=== PATIENT | male | born 1940 | race Caucasian/White ===

== ENCOUNTER 2019-03-17 09:44 | Outpatient (RCR) | payer MEDICARE, OTHER, SELFPAY ==
[2019-01-15 10:18] LABS: INR 2.6; Prothrombin Time 27.2 Seconds (11.1-14.7)
[2019-01-15 10:32] LABS: Alanine Aminotransferase 27 U/L (4-50); Albumin Level 3.9 g/dL (3.5-5.1); Alkaline Phosphatase 65 U/L (38-126); Aspartate Amino Transferase 30 U/L (17-59); Bilirubin,Total 0.6 mg/dL (0.2-1.3); Blood Urea Nitrogen 24 mg/dL (9-20); Calcium 8.6 mg/dL (8.4-10.2); Carbon Dioxide 32 mmol/L (22-30); Chloride 105 mmol/L (98-107); Cholesterol 146 mg/dL (0-200); Estimated Glomerular Filt Rate > 60; Glucose 92 mg/dL (75-110); HDL Direct 36 mg/dL; Potassium 3.9 mmol/L (3.4-5.0); Sodium 141 mmol/L (137-145); Triglycerides 242 mg/dL (<150)
[2019-01-15 10:43] LABS: LDL Cholesterol Direct 80 mg/dL
[2019-01-15 11:10] LABS: Hemoglobin A1C 5.6 % (<5.7)
[2019-03-17 10:44] LABS: Alanine Aminotransferase 27 U/L (4-50); Alkaline Phosphatase 76 U/L (38-126); Aspartate Amino Transferase 29 U/L (17-59); Bilirubin,Total 0.8 mg/dL (0.2-1.3); Blood Urea Nitrogen 23 mg/dL (9-20); Calcium 8.8 mg/dL (8.4-10.2); Carbon Dioxide 31 mmol/L (22-30); Chloride 100 mmol/L (98-107); Cholesterol 136 mg/dL (0-200); Estimated Glomerular Filt Rate > 60; Glucose 85 mg/dL (75-110); HDL Direct 34 mg/dL; Potassium 3.4 mmol/L (3.4-5.0); Sodium 138 mmol/L (137-145); Triglycerides 156 mg/dL (<150)
[2019-03-17 10:45] LABS: Prothrombin Time 30.5 Seconds (11.1-14.7)
[2019-03-17 10:55] LABS: Hemoglobin A1C 5.9 % (<5.7); LDL Cholesterol Direct 79 mg/dL
== END 2019-04-15 23:59 | disposition home or self-care (01) ==
LOC: ANHLAB 09:44
PROVIDERS: PCP Emergency Medicine; Visit Provider Nurse Practitioner
DX: E78.5 Hyperlipidemia, unspecified (principal); E55.9 Vitamin D deficiency, unspecified; R73.9 Hyperglycemia, unspecified; Z92.29 Personal history of other drug therapy
CPT/HCPCS: 36415; 80053; 80061; 82306; 83036; 85610

== ENCOUNTER 2019-04-14 13:37 | Outpatient (CLI) | payer MEDICARE, OTHER, SELFPAY ==
--- NOTE | ~2019-04-14 | CT_ITS ---
EXAMINATION: CT abdomen pelvis w con EXAM DATE: 04/14/2019 14:14 INDICATION: Abdominal pain. TECHNIQUE: Spiral CT of the abdomen and pelvis was performed following intravenous injection of 100 m L Omnipaque 350. Axial, coronal and sagittal images were reviewed. The dose-length product (DLP) fo r this examination was 1160.17 mGy-cm. The exposure was tailored according to patient size (auto mA exposure control), and iterative reconstruction (ASIR) was used as additional dose reduction techniqu e. Comparison is made to prior examination from 07/22/2018. FINDINGS: Chronic left liver lobe atrophy unchanged. The liver, spleen, adrenal glands and pancreas are otherwise unremarkable. Gallbladder is unremarkable. No biliary obstruction. Portal and spleni c veins are patent. Kidneys enhance symmetrically. There is no hydronephrosis. The prostate is un remarkable. The bladder is unremarkable. There is no retroperitoneal or pelvic lymphadenopathy. T here is an IVC filter. The appendix is unremarkable, has decreased in caliber compared to previous exam. The stomach and sm all bowel are unremarkable. There is expected amount of colonic stool. No free intraperitoneal gas . The heart is normal in size. There are no pericardial or pleural effusions. Pleural-based 5 mm left lower lobe nodule was present in 2013, consistent with granuloma. Dependent subsegmental atelect asis. There are no osteoblastic or osteolytic lesions identified. 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 IMPRESSION: 1. No acute intra-abdominal findings. 2. Chronic findings. Reviewed, dictated and finalized at location A. [employer]
== END 2019-04-14 13:38 | disposition home or self-care (01) ==
PROVIDERS: PCP Emergency Medicine; Visit Provider Emergency Medicine
DX: R10.9 Unspecified abdominal pain (principal)
CPT/HCPCS: 74177; Q9967

== ENCOUNTER 2019-06-30 20:41 | Emergency (ER) | payer MEDICARE, OTHER, SELFPAY ==
--- NOTE | ~2019-06-30 | XR_ITS ---
EXAMINATION: XR hip RT 2V w AP pelvis INDICATION: Pain after fall TECHNIQUE: AP view the pelvis and two views of the right hip are obtained. COMPARISON: None available FINDINGS: Bone alignment is normal. 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 No frac ture is identified. Phleboliths are noted in the pelvis. IMPRESSION: 1. No acute osseous abnormality. Reviewed, dictated and finalized at location A.
--- NOTE | ~2019-06-30 | XR_ITS ---
EXAMINATION: XR femur RT min 2V INDICATION: Right femur pain TECHNIQUE: Two views of the right femur are obtained on four radiographs. COMPARISON: None available FINDINGS: There is no fracture. Mild hip osteoarthritis is noted. There are changes of total knee art hroplasty. A small knee joint effusion is present. Bone alignment is normal. IMPRESSION: 1. No acute osseous abnormality. Reviewed, dictated and finalized at location A.
--- NOTE | ~2019-06-30 | XR_ITS ---
EXAMINATION: XR knee RT min 4V DATE: 06/30/2019 21:34 INDICATION: Right knee pain TECHNIQUE: Four views of the right knee were obtained. COMPARISON: None. FINDINGS: Alignment is normal. There are changes of total knee arthroplasty. No fracture is identifie d. There is a small knee joint effusion. There is mild prepatellar soft tissue swelling. Calcified at herosclerosis is noted. IMPRESSION: 1. Small knee joint effusion without acute osseous findings. Reviewed, dictated and finalized at location A.
[2019-06-30 20:42] VITALS: BP 129/94; PULSE 102; RESP 18; TEMP 36.9; O2SAT 98
[2019-06-30 21:12] LABS: Basophils Absolute Auto 0.1 K/mm3 (0.0-0.1); Basophils Percent Auto 0.6 % (0.2-1.2); Eosinophils Absolute Auto 0.2 K/mm3 (0-0.3); Eosinophils Percent Auto 2.2 % (0-4.4); Hematocrit 35.2 % (42.0-52.0); Hemoglobin 11.2 g/dL (14.0-18.0); Immature Granulocyte Absolute 0.07 K/mm3 (0.00-0.031); Immature Granulocyte Percent A 0.8 % (0-0.5); Lymphocytes Absolute Auto 1.19 K/mm3 (0.9-3.2); Lymphocytes Percent Auto 13.8 % (18.3-44.2); Mean Corpuscular HGB Conc 31.8 g/dl (32-36); Mean Corpuscular Hemoglobin 28.6 pg (26-34); Mean Platelet Volume 8.8 fl (7.4-10.4); Monocytes Absolute Auto 0.9 K/mm3 (0.1-0.6); Monocytes Percent Auto 10.2 % (2.6-8.5); Neutrophils Absolute Auto 6.2 K/mm3 (1.3-6.7); Neutrophils Percent Auto 72.4 % (45.5-73.1); Platelet Count Result 280 k/mm3 (150-375); Red Blood Count 3.91 M/mm3 (4.6-6.20); Red Cell Distribution Width 14.3 % (11.5-14.5); White Blood Count 8.6 K/mm3 (4.5-10.0)
[2019-06-30 21:23] LABS: Prothrombin Time 45.9 Seconds (11.1-14.7)
[2019-06-30 21:24] LABS: Blood Urea Nitrogen 24 mg/dL (9-20); Calcium 8.3 mg/dL (8.4-10.2); Carbon Dioxide 32 mmol/L (22-30); Chloride 106 mmol/L (98-107); Estimated CRCL calculation 73 ml/min; Estimated Glomerular Filt Rate > 60; Glucose 124 mg/dL (75-110); Potassium 3.8 mmol/L (3.4-5.0); Sodium 140 mmol/L (137-145)
[2019-06-30 22:27] VITALS: BP 126/84; PULSE 98; RESP 16; O2SAT 100
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
== END 2019-06-30 23:07 | disposition home or self-care (01) ==
PROVIDERS: Emergency Provider Emergency Medicine; PCP Emergency Medicine
DX: S70.11XA Contusion of right thigh, initial encounter (principal); Z79.01 Long term (current) use of anticoagulants; Z86.711 Personal history of pulmonary embolism; W05.2XXA Fall from non-moving motorized mobility scooter, initial encounter
CPT/HCPCS: 36415; 73502; 73552; 73564; 80048; 85025; 85610; 85730; 99284

== ENCOUNTER 2019-07-08 12:06 | Outpatient (CLI) | payer MEDICARE, OTHER, SELFPAY ==
[2019-07-08 12:40] LABS: INR 4.3
== END 2019-07-08 12:07 | disposition home or self-care (01) ==
PROVIDERS: PCP Emergency Medicine; Visit Provider Emergency Medicine
DX: T45.511A Poisoning by anticoagulants, accidental (unintentional), initial encounter (principal)
CPT/HCPCS: 36415; 85610

== ENCOUNTER 2019-07-10 09:29 | Outpatient (CLI) | payer MEDICARE, OTHER, SELFPAY ==
[2019-07-10 10:01] LABS: INR 2.8; Prothrombin Time 28.7 Seconds (11.1-14.7)
== END 2019-07-10 09:30 | disposition home or self-care (01) ==
PROVIDERS: PCP Emergency Medicine; Visit Provider Emergency Medicine
DX: T45.511A Poisoning by anticoagulants, accidental (unintentional), initial encounter (principal)
CPT/HCPCS: 36415; 85610

== ENCOUNTER 2019-07-15 10:01 | Outpatient (CLI) | payer MEDICARE, OTHER, SELFPAY ==
[2019-07-15 10:42] LABS: INR 1.9
== END 2019-07-15 10:02 | disposition home or self-care (01) ==
PROVIDERS: PCP Emergency Medicine; Visit Provider Emergency Medicine
DX: T45.511A Poisoning by anticoagulants, accidental (unintentional), initial encounter (principal)
CPT/HCPCS: 36415; 85610

== ENCOUNTER 2019-08-28 10:10 | Outpatient (RCR) | payer MEDICARE, OTHER, SELFPAY ==
[2019-07-27 13:47] LABS: INR 2.9
[2019-07-27 13:52] LABS: Alanine Aminotransferase 29 U/L (4-50); Alkaline Phosphatase 88 U/L (38-126); Aspartate Amino Transferase 31 U/L (17-59); Bilirubin,Total 0.5 mg/dL (0.2-1.3); Blood Urea Nitrogen 21 mg/dL (9-20); Calcium 8.7 mg/dL (8.4-10.2); Carbon Dioxide 33 mmol/L (22-30); Chloride 101 mmol/L (98-107); Estimated Glomerular Filt Rate > 60; Glucose 98 mg/dL (75-110); Potassium 3.8 mmol/L (3.4-5.0); Sodium 138 mmol/L (137-145)
[2019-07-31 12:40] LABS: INR 3.1; Prothrombin Time 31.6 Seconds (11.1-14.7)
[2019-08-28 10:47] LABS: INR 3.3; Prothrombin Time 33.1 Seconds (11.1-14.7)
== END 2019-10-25 23:59 | disposition home or self-care (01) ==
LOC: ANHLAB 10:10
PROVIDERS: PCP Emergency Medicine; Visit Provider Emergency Medicine
DX: E78.5 Hyperlipidemia, unspecified (principal); T45.511A Poisoning by anticoagulants, accidental (unintentional), initial encounter
CPT/HCPCS: 36415; 80053; 85610

== ENCOUNTER → 2019-10-21 09:32 | Outpatient (CLI) | payer MEDICARE, OTHER, SELFPAY ==
--- NOTE | ~2019-10-21 | XR_ITS ---
XR shoulder RT min 2V DATE: 10/21/2019 10:06 INDICATION: Limited motion of right shoulder TECHNIQUE: 5 views COMPARISON: None FINDINGS: There is mild degenerative spurring at the right acromioclavicular joint. There is osteoarthritic spurring of the glenoid process. There is evidence of rotator cuff atrophy. No fracture or dislocation, periosteal reaction or bone destruction or abnormal right shoulder soft t issue calcification is evident. Diffuse osteopenia. Status post anterior cervical spine surgical fusion. Degenerative changes of the lower cervical spine . 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 Degenerati ve spurring of the lower thoracic spine. 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
== END ==
PROVIDERS: PCP Physician Assistant; Visit Provider Physician Assistant
DX: M19.011 Primary osteoarthritis, right shoulder (principal); M85.80 Other specified disorders of bone density and structure, unspecified site
CPT/HCPCS: 73030

== ENCOUNTER 2020-06-06 10:17 | Outpatient (CLI) | payer MEDICARE, OTHER, SELFPAY ==
[2020-06-06 11:04] LABS: Basophils Percent Auto 0.6 % (0.2-1.2); Eosinophils Absolute Auto 0.1 K/mm3 (0-0.3); Eosinophils Percent Auto 1.4 % (0-4.4); Hematocrit 49.2 % (42.0-52.0); Hemoglobin 15.9 g/dL (14.0-18.0); Immature Granulocyte Absolute 0.03 K/mm3 (0.00-0.031); Immature Granulocyte Percent A 0.5 % (0-0.5); Lymphocytes Absolute Auto 1.47 K/mm3 (0.9-3.2); Lymphocytes Percent Auto 23.3 % (18.3-44.2); Mean Corpuscular HGB Conc 32.3 g/dl (32-36); Mean Corpuscular Hemoglobin 29.3 pg (26-34); Mean Corpuscular Volume 90.8 fl (80-100); Monocytes Absolute Auto 0.7 K/mm3 (0.1-0.6); Monocytes Percent Auto 10.9 % (2.6-8.5); Neutrophils Percent Auto 63.3 % (45.5-73.1); Platelet Count Result 197 k/mm3 (150-375); Red Blood Count 5.42 M/mm3 (4.6-6.20); Red Cell Distribution Width 13.2 % (11.5-14.5); White Blood Count 6.3 K/mm3 (4.5-10.0)
[2020-06-06 11:14] LABS: INR 4.5; Prothrombin Time 42.8 Seconds (11.1-14.7)
[2020-06-06 12:13] LABS: Hemoglobin A1C 5.4 % (<5.7)
[2020-06-06 13:10] LABS: Alanine Aminotransferase 27 U/L (4-50); Albumin Level 4.1 g/dL (3.5-5.1); Alkaline Phosphatase 74 U/L (38-126); Anion Gap 3 mmol/L (8-16); Aspartate Amino Transferase 30 U/L (17-59); Bilirubin,Total 0.6 mg/dL (0.2-1.3); Blood Urea Nitrogen 23 mg/dL (9-20); Calcium 8.9 mg/dL (8.4-10.2); Carbon Dioxide 34 mmol/L (22-30); Chloride 101 mmol/L (98-107); Cholesterol 125 mg/dL (0-200); Estimated Glomerular Filt Rate > 60; Glucose 108 mg/dL (75-110); HDL Direct 41 mg/dL; Potassium 3.8 mmol/L (3.4-5.0); Sodium 138 mmol/L (137-145); Triglycerides 129 mg/dL (<150)
[2020-06-06 13:23] LABS: LDL Cholesterol Direct 59 mg/dL
== END 2020-06-06 10:18 | disposition home or self-care (01) ==
PROVIDERS: PCP Physician Assistant; Visit Provider Physician Assistant
DX: Z51.81 Encounter for therapeutic drug level monitoring (principal); Z79.899 Other long term (current) drug therapy; R53.83 Other fatigue; E78.2 Mixed hyperlipidemia
CPT/HCPCS: 36415; 80053; 80061; 83036; 85025; 85610

== ENCOUNTER 2020-07-19 12:43 | Outpatient (CLI) | payer MEDICARE, OTHER, SELFPAY ==
--- NOTE | ~2020-07-19 | US_ITS ---
EXAMINATION: US art doppler w press LE DATE: 07/19/2020 14:11 CDT INDICATION: Peripheral vascular disease TECHNIQUE: Segmental pressures and plethysmographic and Doppler waveforms of the brachial and lower e xtremity arteries were obtained. COMPARISON: None. FINDINGS: Right and left brachial artery pressures of 121 mm Hg and 113 mm Hg, respectively, are concordant (no rmal difference <= 30 mmHg). The right high-thigh pressure index is 1.28 (normal > 1.2). The right ankle-brachial index (LIBRADO) is 1 .39 (normal >= 0.9-1.0). The right great toe-brachial index (TBI) is 1.51 (normal >= 0.60). The right lower extremity segmental pressure gradients are normal (normal gradients <= 20-30 mmHg between corinne cent levels on the same leg or the same levels on the two legs). Arterial Doppler waveforms are mixed biphasic and triphasic. The left high-thigh pressure index is 1.14. The left LIBRADO is 1.2. The left TBI is 1. The left lower ex tremity segmental pressure gradients are normal. Arterial Doppler waveforms are predominantly biphasi c. IMPRESSION: 1. Normal bilateral ankle and toe brachial indices. Reviewed, dictated and finalized at location B.
== END 2020-07-19 12:44 | disposition home or self-care (01) ==
LOC: ANHIMG 12:44
PROVIDERS: PCP Physician Assistant; Visit Provider Orthopaedic Surgery
DX: I82.813 Embolism and thrombosis of superficial veins of lower extremities, bilateral (principal); I73.9 Peripheral vascular disease, unspecified; M25.579 Pain in unspecified ankle and joints of unspecified foot
CPT/HCPCS: 93923